=== PATIENT | male | born 1960 | race Caucasian/White ===

== ENCOUNTER → 2019-12-05 | Outpatient (CLI) | payer OTHER | END | disposition home or self-care (01) | LOC: LAB 09:20 | DX: R53.83 Other fatigue (principal); R79.89 Other specified abnormal findings of blood chemistry ==

== ENCOUNTER → 2023-06-21 | Outpatient (CLI) | payer OTHER ==
[~2023-06-21] MED LIST: BUDESONIDE-FO10.2 G1 INH; CARVEDILOL12.5 MG PO; CEFDINIR300 MG PO; FUROSEMIDE20 M1 PO; GEMFIBROZIL600 MG PO; LOSARTAN POTASS25 M1 PO; LOSARTAN POTASS50 M1 PO; METFORMIN HYD1000 MG PO; OMEPRAZOLE40 MG PO; POTASSIUM CHLO10 MEQ PO; PROAIR DIGIHAL90 MCG INH; PROVENTIL HFA6.7 GM INH; SPIRIVA RESPIMAT4 GM INH; VIBRAMYCIN100 MG PO
== END | disposition home or self-care (01) ==
LOC: WOUNDCARE 10:08
PROVIDERS: ATTEND Nurse Practitioner Family
DX: L03.116 Cellulitis of left lower limb (principal); L03.115 Cellulitis of right lower limb; E11.621 Type 2 diabetes mellitus with foot ulcer; L97.521 Non-pressure chronic ulcer of other part of left foot limited to breakdown of skin; E11.622 Type 2 diabetes mellitus with other skin ulcer; L97.321 Non-pressure chronic ulcer of left ankle limited to breakdown of skin; I11.0 Hypertensive heart disease with heart failure; I50.20 Unspecified systolic (congestive) heart failure; E78.5 Hyperlipidemia, unspecified; E78.00 Pure hypercholesterolemia, unspecified; F17.290 Nicotine dependence, other tobacco product, uncomplicated; Z95.5 Presence of coronary angioplasty implant and graft; Z89.411 Acquired absence of right great toe

== ENCOUNTER → 2023-07-01 | Outpatient (CLI) | payer OTHER ==
[~2023-07-01] MED LIST changes: +ASPIRIN CHILDRE81 MG PO; +ATORVASTATIN CA40 M1 PO; +GABAPENTIN100 M2 PO; +HYDRALAZINE HYD50 MG PO; +LASIX20 MG PO; +METFORMIN HYDR500 MG PO
== END | disposition home or self-care (01) ==
LOC: WOUNDCARE 01:28
PROVIDERS: ATTEND Nurse Practitioner Family
DX: E11.622 Type 2 diabetes mellitus with other skin ulcer (principal); L97.322 Non-pressure chronic ulcer of left ankle with fat layer exposed; E11.621 Type 2 diabetes mellitus with foot ulcer; L97.522 Non-pressure chronic ulcer of other part of left foot with fat layer exposed; L03.115 Cellulitis of right lower limb; L03.116 Cellulitis of left lower limb; I11.0 Hypertensive heart disease with heart failure; I50.20 Unspecified systolic (congestive) heart failure; E78.5 Hyperlipidemia, unspecified; E78.00 Pure hypercholesterolemia, unspecified; I25.2 Old myocardial infarction; Z87.891 Personal history of nicotine dependence; Z89.411 Acquired absence of right great toe

== ENCOUNTER → 2023-07-07 | Outpatient (CLI) | payer OTHER | END | disposition home or self-care (01) | LOC: WOUNDCARE 00:58 | PROVIDERS: ATTEND Nurse Practitioner Family | DX: E11.621 Type 2 diabetes mellitus with foot ulcer (principal); L97.522 Non-pressure chronic ulcer of other part of left foot with fat layer exposed; E11.622 Type 2 diabetes mellitus with other skin ulcer; L97.322 Non-pressure chronic ulcer of left ankle with fat layer exposed; L03.116 Cellulitis of left lower limb; L03.115 Cellulitis of right lower limb; E78.5 Hyperlipidemia, unspecified; I11.0 Hypertensive heart disease with heart failure; I50.20 Unspecified systolic (congestive) heart failure; E78.00 Pure hypercholesterolemia, unspecified; I25.2 Old myocardial infarction; Z89.411 Acquired absence of right great toe; Z87.891 Personal history of nicotine dependence ==

== ENCOUNTER → 2023-07-12 | Outpatient (CLI) | payer OTHER | END | disposition home or self-care (01) | LOC: WOUNDCARE 00:43 | PROVIDERS: ATTEND Nurse Practitioner Family | DX: L03.116 Cellulitis of left lower limb (principal); L03.115 Cellulitis of right lower limb; E11.621 Type 2 diabetes mellitus with foot ulcer; L97.521 Non-pressure chronic ulcer of other part of left foot limited to breakdown of skin; E11.622 Type 2 diabetes mellitus with other skin ulcer; L97.321 Non-pressure chronic ulcer of left ankle limited to breakdown of skin; I11.0 Hypertensive heart disease with heart failure; I50.20 Unspecified systolic (congestive) heart failure; I25.2 Old myocardial infarction; E78.5 Hyperlipidemia, unspecified; E78.00 Pure hypercholesterolemia, unspecified; F17.200 Nicotine dependence, unspecified, uncomplicated; Z89.411 Acquired absence of right great toe ==

== ENCOUNTER → 2023-07-14 | Outpatient (CLI) | payer OTHER | END | disposition home or self-care (01) | LOC: WOUNDCARE 00:33 | PROVIDERS: ATTEND Nurse Practitioner Family | DX: E11.621 Type 2 diabetes mellitus with foot ulcer (principal); L97.522 Non-pressure chronic ulcer of other part of left foot with fat layer exposed; E11.622 Type 2 diabetes mellitus with other skin ulcer; L97.321 Non-pressure chronic ulcer of left ankle limited to breakdown of skin; L03.116 Cellulitis of left lower limb; L03.115 Cellulitis of right lower limb; L84 Corns and callosities; I10 Essential (primary) hypertension; E78.00 Pure hypercholesterolemia, unspecified; I25.2 Old myocardial infarction; I11.0 Hypertensive heart disease with heart failure; I50.20 Unspecified systolic (congestive) heart failure; E78.5 Hyperlipidemia, unspecified; F17.290 Nicotine dependence, other tobacco product, uncomplicated; Z89.411 Acquired absence of right great toe ==

== ENCOUNTER 2023-07-21 10:47 | Inpatient (IN) | payer OTHER ==
[~2023-07-21] VITALS: Ht 178 cm; Wt 137.6 kg
[2023-07-21] VITALS (8 sets, daily range): BP systolic 191–230; BP diastolic 84–110
[~2023-07-21 10:47] MED LIST changes: -IMDUR SA30 MG PO; -K-TAB20 MEQ PO; -LASIX40 MG PO; -LISINOPRIL10 M1 PO
[2023-07-21 11:42] LABS: BASO # 0.1 10*3/uL (0.0-0.1); BASO % 1.3 % (0.0-1.0); EOS # 0.2 10*3/uL (0.0-0.4); EOS % 2.4 % (1.0-4.0); HEMATOCRIT 34.6 % (42.0-52.0); LYMPH # 1.5 10*3/uL (1.3-4.4); LYMPH % 16.2 % (27.0-41.0); MEAN CELL VOLUME 87.6 fl (80.0-94.0); MEAN CORPUSCULAR HGB 26.6 pg (27.0-31.0); MEAN CORPUSCULAR HGB CONC 30.3 g/dl (33.0-37.0); MEAN PLATELET VOLUME 10.5 fl (9.6-12.3); MONO # 0.6 10*3/uL (0.1-1.0); MONO % 6.4 % (3.0-9.0); NEUT % 73.4 % (47.0-73.0); PLATELET COUNT AUTOMATED 346 10*3/uL (130-400); RED BLOOD COUNT 3.95 10*6/uL (4.50-5.90); RED CELL DISTRI WIDTH 15.7 % (0-14.5); WHITE BLOOD COUNT 9.5 10*3/uL (4.8-10.8)
[2023-07-21] MEDS ORDERED: METFORMIN HYD1000 MG PO (12:12)
[2023-07-21 12:56] LABS: ACT PARTIAL THROMBO TIME 27.2 SECONDS (20.0-32.1); INTERNATIONAL NORM RATIO 1.2 (2.0-3.5)
[2023-07-21 12:58] LABS: ALKALINE PHOSPHATASE 128 U/L (46-116); BUN 35 mg/dl (9-23); CHLORIDE 113 mmol/L (98-107); LIPASE 43 U/L (12-53); POTASSIUM 4.3 mmol/L (3.4-5.1); TOTAL PROTEIN 6.5 gm/dL (6.0-8.0)
[2023-07-21 13:02] LABS: SGPT/ALT < 7 U/L (10-49)
[2023-07-22] VITALS: BP 203/77
[2023-07-22 02:00] VITALS: BP 186/64
[2023-07-22 06:25] LABS: BASO # 0.1 10*3/uL (0.0-0.1); BASO % 1.3 % (0.0-1.0); EOS # 0.2 10*3/uL (0.0-0.4); HEMATOCRIT 30.8 % (42.0-52.0); LYMPH # 1.9 10*3/uL (1.3-4.4); LYMPH % 18.2 % (27.0-41.0); MEAN CELL VOLUME 88.3 fl (80.0-94.0); MEAN CORPUSCULAR HGB 26.4 pg (27.0-31.0); MEAN CORPUSCULAR HGB CONC 29.9 g/dl (33.0-37.0); MEAN PLATELET VOLUME 10.4 fl (9.6-12.3); MONO # 0.8 10*3/uL (0.1-1.0); MONO % 7.5 % (3.0-9.0); NEUT # 7.2 10*3/uL (2.3-7.9); NEUT % 70.6 % (47.0-73.0); PLATELET COUNT AUTOMATED 319 10*3/uL (130-400); RED BLOOD COUNT 3.49 10*6/uL (4.50-5.90); RED CELL DISTRI WIDTH 15.7 % (0-14.5); WHITE BLOOD COUNT 10.2 10*3/uL (4.8-10.8)
[2023-07-22 06:48] LABS: ALKALINE PHOSPHATASE 114 U/L (46-116); BUN 34 mg/dl (9-23); CHLORIDE 111 mmol/L (98-107); POTASSIUM 3.9 mmol/L (3.4-5.1); TOTAL PROTEIN 5.7 gm/dL (6.0-8.0)
[2023-07-22 06:55] LABS: SGPT/ALT < 7 U/L (10-49)
[2023-07-22 08:00] VITALS: BP 204/75
[2023-07-22 12:00] VITALS: BP 193/71
[2023-07-22 16:00] VITALS: BP 179/85
[2023-07-22 20:00] VITALS: BP 171/56
[2023-07-23] VITALS (7 sets, daily range): BP systolic 146–187; BP diastolic 51–69
[2023-07-23 07:43] LABS: BASO # 0.1 10*3/uL (0.0-0.1); BASO % 1.4 % (0.0-1.0); EOS # 0.3 10*3/uL (0.0-0.4); EOS % 4.3 % (1.0-4.0); HEMATOCRIT 29.7 % (42.0-52.0); LYMPH # 1.6 10*3/uL (1.3-4.4); LYMPH % 22.8 % (27.0-41.0); MEAN CELL VOLUME 88.7 fl (80.0-94.0); MEAN CORPUSCULAR HGB 26.3 pg (27.0-31.0); MEAN CORPUSCULAR HGB CONC 29.6 g/dl (33.0-37.0); MEAN PLATELET VOLUME 10.6 fl (9.6-12.3); MONO # 0.6 10*3/uL (0.1-1.0); NEUT # 4.4 10*3/uL (2.3-7.9); NEUT % 63.2 % (47.0-73.0); PLATELET COUNT AUTOMATED 273 10*3/uL (130-400); RED BLOOD COUNT 3.35 10*6/uL (4.50-5.90); RED CELL DISTRI WIDTH 15.6 % (0-14.5)
[2023-07-23 07:52] LABS: POTASSIUM 3.9 mmol/L (3.4-5.1)
[2023-07-23 11:53] LABS: ABG BASE EXCESS -2.3 mmol/L (-2.0-2.0); ARTERIAL BLOOD GAS PH 7.424 (7.35-7.45); ARTERIAL BLOOD GAS PO2 127.6 (80-90)
[2023-07-24] VITALS: BP 148/54
[2023-07-24 07:50] LABS: BASO # 0.1 10*3/uL (0.0-0.1); BASO % 1.4 % (0.0-1.0); EOS # 0.4 10*3/uL (0.0-0.4); EOS % 4.8 % (1.0-4.0); HEMATOCRIT 30.4 % (42.0-52.0); LYMPH # 1.5 10*3/uL (1.3-4.4); LYMPH % 18.9 % (27.0-41.0); MEAN CELL VOLUME 89.7 fl (80.0-94.0); MEAN CORPUSCULAR HGB 26.5 pg (27.0-31.0); MEAN CORPUSCULAR HGB CONC 29.6 g/dl (33.0-37.0); MEAN PLATELET VOLUME 10.6 fl (9.6-12.3); MONO # 0.7 10*3/uL (0.1-1.0); NEUT # 5.1 10*3/uL (2.3-7.9); NEUT % 65.4 % (47.0-73.0); PLATELET COUNT AUTOMATED 279 10*3/uL (130-400); RED BLOOD COUNT 3.39 10*6/uL (4.50-5.90); RED CELL DISTRI WIDTH 15.7 % (0-14.5); WHITE BLOOD COUNT 7.7 10*3/uL (4.8-10.8)
[2023-07-24 08:00] VITALS: BP 175/65
[2023-07-24 08:06] LABS: POTASSIUM 4.6 mmol/L (3.4-5.1)
[2023-07-24 12:00] VITALS: BP 131/82
[2023-07-24 16:00] VITALS: BP 181/68
[2023-07-24 20:00] VITALS: BP 194/66
[2023-07-24 20:30] VITALS: BP 178/62
[2023-07-25] VITALS: BP 162/63
[2023-07-25 06:22] LABS: BASO # 0.1 10*3/uL (0.0-0.1); BASO % 1.7 % (0.0-1.0); EOS # 0.4 10*3/uL (0.0-0.4); EOS % 5.5 % (1.0-4.0); HEMATOCRIT 29.5 % (42.0-52.0); LYMPH # 1.4 10*3/uL (1.3-4.4); LYMPH % 20.2 % (27.0-41.0); MEAN CELL VOLUME 90.5 fl (80.0-94.0); MEAN CORPUSCULAR HGB 26.4 pg (27.0-31.0); MEAN CORPUSCULAR HGB CONC 29.2 g/dl (33.0-37.0); MEAN PLATELET VOLUME 10.4 fl (9.6-12.3); MONO # 0.7 10*3/uL (0.1-1.0); MONO % 9.8 % (3.0-9.0); NEUT # 4.5 10*3/uL (2.3-7.9); NEUT % 62.5 % (47.0-73.0); PLATELET COUNT AUTOMATED 270 10*3/uL (130-400); RED BLOOD COUNT 3.26 10*6/uL (4.50-5.90); RED CELL DISTRI WIDTH 15.6 % (0-14.5); WHITE BLOOD COUNT 7.1 10*3/uL (4.8-10.8)
[2023-07-25 06:35] VITALS: BP 174/76
[2023-07-25 07:13] LABS: POTASSIUM 4.8 mmol/L (3.4-5.1)
[2023-07-25 08:00] VITALS: BP 146/51
[2023-07-25 12:00] VITALS: BP 198/68
[2023-07-25 16:00] VITALS: BP 152/58
[2023-07-25 20:00] VITALS: BP 178/80
[2023-07-26] VITALS: BP 145/56
[2023-07-26 06:08] LABS: BASO # 0.1 10*3/uL (0.0-0.1); BASO % 1.5 % (0.0-1.0); EOS # 0.4 10*3/uL (0.0-0.4); EOS % 5.3 % (1.0-4.0); HEMATOCRIT 31.7 % (42.0-52.0); LYMPH # 1.4 10*3/uL (1.3-4.4); LYMPH % 19.3 % (27.0-41.0); MEAN CELL VOLUME 89.5 fl (80.0-94.0); MEAN CORPUSCULAR HGB 26.3 pg (27.0-31.0); MEAN CORPUSCULAR HGB CONC 29.3 g/dl (33.0-37.0); MEAN PLATELET VOLUME 10.2 fl (9.6-12.3); MONO # 0.6 10*3/uL (0.1-1.0); MONO % 8.3 % (3.0-9.0); NEUT # 4.9 10*3/uL (2.3-7.9); NEUT % 65.3 % (47.0-73.0); PLATELET COUNT AUTOMATED 271 10*3/uL (130-400); RED BLOOD COUNT 3.54 10*6/uL (4.50-5.90); RED CELL DISTRI WIDTH 15.7 % (0-14.5); WHITE BLOOD COUNT 7.5 10*3/uL (4.8-10.8)
[2023-07-26 06:25] LABS: POTASSIUM 4.8 mmol/L (3.4-5.1)
[2023-07-26 09:00] VITALS: BP 180/70
[2023-07-26 12:00] VITALS: BP 191/102
[2023-07-26 16:00] VITALS: BP 179/72
[2023-07-26 20:00] VITALS: BP 165/69
[2023-07-27] VITALS: BP 128/45
[2023-07-27 04:00] VITALS: BP 133/53
[2023-07-27 08:00] VITALS: BP 160/80
[2023-07-27] MEDS ORDERED: IMDUR SA30 MG PO (09:45)
[2023-07-27] MEDS ORDERED: LASIX40 MG PO (09:45)
[2023-07-27] MEDS ORDERED: LISINOPRIL10 M1 PO (09:45)
[2023-07-27] MEDS ORDERED: K-TAB20 MEQ PO (09:46)
[2023-07-27] MEDS ORDERED: VIBRAMYCIN100 MG PO (09:47)
== END 2023-07-27 11:19 | disposition home or self-care (01) | DRG 199 ==
LOC: ED 10:47 → EDHOLD 13:48 → 4E 13:48 → EDHOLD 20:10 → 4E 20:23
PROVIDERS: Emergency Medicine; Internal Medicine; Student in an Organized Health Care Education/Training Program; ADMIT Internal Medicine; ATTEND Internal Medicine
PROC: 4A02XM4 Measurement of Cardiac Total Activity, External Approach (ICD-10-PCS; principal; 2023-07-26)
PROC: 3E073KZ Introduction of Other Diagnostic Substance into Coronary Artery, Percutaneous Approach (ICD-10-PCS; 2023-07-26)
DX: I16.1 Hypertensive emergency (principal); N17.0 Acute kidney failure with tubular necrosis; E43 Unspecified severe protein-calorie malnutrition; I50.43 Acute on chronic combined systolic (congestive) and diastolic (congestive) heart failure; I21.4 Non-ST elevation (NSTEMI) myocardial infarction; I11.0 Hypertensive heart disease with heart failure; J44.9 Chronic obstructive pulmonary disease, unspecified; E78.5 Hyperlipidemia, unspecified; Z66 Do not resuscitate; I25.10 Atherosclerotic heart disease of native coronary artery without angina pectoris; E11.51 Type 2 diabetes mellitus with diabetic peripheral angiopathy without gangrene; I27.20 Pulmonary hypertension, unspecified; D64.9 Anemia, unspecified; L03.115 Cellulitis of right lower limb; L03.116 Cellulitis of left lower limb; F17.210 Nicotine dependence, cigarettes, uncomplicated; E87.8 Other disorders of electrolyte and fluid balance, not elsewhere classified; I25.110 Atherosclerotic heart disease of native coronary artery with unstable angina pectoris; J45.21 Mild intermittent asthma with (acute) exacerbation; E11.621 Type 2 diabetes mellitus with foot ulcer; I07.1 Rheumatic tricuspid insufficiency; E11.42 Type 2 diabetes mellitus with diabetic polyneuropathy; Z83.6 Family history of other diseases of the respiratory system; I25.2 Old myocardial infarction; Z71.6 Tobacco abuse counseling; Z68.41 Body mass index [BMI] 40.0-44.9, adult; Z51.5 Encounter for palliative care

== ENCOUNTER → 2023-07-21 | Outpatient (CLI) | payer OTHER ==
[~2023-07-21] MED LIST changes: +IMDUR SA30 MG PO; +K-TAB20 MEQ PO; +LASIX40 MG PO; +LISINOPRIL10 M1 PO
== END | disposition home or self-care (01) ==
LOC: RESCLI 01:54
PROVIDERS: ATTEND Internal Medicine
DX: I11.0 Hypertensive heart disease with heart failure (principal); I50.9 Heart failure, unspecified; E11.622 Type 2 diabetes mellitus with other skin ulcer; K21.9 Gastro-esophageal reflux disease without esophagitis; G62.9 Polyneuropathy, unspecified; J44.9 Chronic obstructive pulmonary disease, unspecified; Z00.00 Encounter for general adult medical examination without abnormal findings; Z98.890 Other specified postprocedural states; Z79.899 Other long term (current) drug therapy

== ENCOUNTER → 2023-08-02 | Outpatient (CLI) | payer OTHER ==
[~2023-08-02] MED LIST changes: +IMDUR SA30 MG PO; +K-TAB20 MEQ PO; +LASIX40 MG PO; +LISINOPRIL10 M1 PO
== END | disposition home or self-care (01) ==
LOC: WOUNDCARE 01:00
PROVIDERS: ATTEND Nurse Practitioner Family
DX: E11.621 Type 2 diabetes mellitus with foot ulcer (principal); L97.521 Non-pressure chronic ulcer of other part of left foot limited to breakdown of skin; L03.116 Cellulitis of left lower limb; L03.115 Cellulitis of right lower limb; L84 Corns and callosities; I11.0 Hypertensive heart disease with heart failure; I50.20 Unspecified systolic (congestive) heart failure; I25.2 Old myocardial infarction; E78.00 Pure hypercholesterolemia, unspecified; E78.5 Hyperlipidemia, unspecified; F17.290 Nicotine dependence, other tobacco product, uncomplicated; Z89.411 Acquired absence of right great toe

== ENCOUNTER → 2023-08-05 | Outpatient (CLI) | payer OTHER | END | disposition home or self-care (01) | LOC: WOUNDCARE 02:23 | PROVIDERS: ATTEND Nurse Practitioner Family | DX: E11.621 Type 2 diabetes mellitus with foot ulcer (principal); L97.522 Non-pressure chronic ulcer of other part of left foot with fat layer exposed; L03.116 Cellulitis of left lower limb; L84 Corns and callosities; I11.0 Hypertensive heart disease with heart failure; I50.20 Unspecified systolic (congestive) heart failure; E78.5 Hyperlipidemia, unspecified; E78.00 Pure hypercholesterolemia, unspecified; Z89.411 Acquired absence of right great toe; Z95.5 Presence of coronary angioplasty implant and graft; Z87.891 Personal history of nicotine dependence ==

== ENCOUNTER 2023-12-09 02:09 | Inpatient (IN) | payer SELFPAY ==
[~2023-12-09] VITALS: Ht 177.8 cm; Wt 118.9 kg
[2023-12-09] VITALS (27 sets, daily range): BP systolic 144–224; BP diastolic 51–99
[~2023-12-09 02:09] MED LIST changes: +OMNICEF300 MG PO
[2023-12-09] MEDS ORDERED: CARVEDILOL25 MG PO (02:33)
[2023-12-09] MEDS ORDERED: VITAMIN D250 MC1 PO (02:34)
[2023-12-09 02:41] LABS: BASO # 0.1 10*3/uL (0.0-0.1); EOS # 0.4 10*3/uL (0.0-0.4); EOS % 5.7 % (1.0-4.0); LYMPH # 1.1 10*3/uL (1.3-4.4); LYMPH % 16.1 % (27.0-41.0); MEAN CELL VOLUME 90.4 fl (80.0-94.0); MEAN CORPUSCULAR HGB 26.6 pg (27.0-31.0); MEAN CORPUSCULAR HGB CONC 29.4 g/dl (33.0-37.0); MEAN PLATELET VOLUME 9.6 fl (9.6-12.3); MONO # 0.4 10*3/uL (0.1-1.0); MONO % 5.7 % (3.0-9.0); NEUT # 4.6 10*3/uL (2.3-7.9); NEUT % 70.3 % (47.0-73.0); PLATELET COUNT AUTOMATED 286 10*3/uL (130-400); RED BLOOD COUNT 3.76 10*6/uL (4.50-5.90); RED CELL DISTRI WIDTH 15.7 % (0-14.5); WHITE BLOOD COUNT 6.5 10*3/uL (4.8-10.8)
[2023-12-09 02:57] LABS: ACT PARTIAL THROMBO TIME 27.9 SECONDS (20.0-32.1)
[2023-12-09 02:58] LABS: ALKALINE PHOSPHATASE 133 U/L (46-116); BUN 33 mg/dl (9-23); CHLORIDE 111 mmol/L (98-107); LIPASE 26 U/L (12-53); POTASSIUM 3.7 mmol/L (3.4-5.1); TOTAL PROTEIN 6.1 gm/dL (6.0-8.0)
[2023-12-09 02:59] LABS: SGPT/ALT < 7 U/L (5-49)
[2023-12-09 09:54] LABS: BILIRUBIN Negative (Negative); BLOOD Negative (Negative); CLARITY Clear (Clear); COLOR Yellow (Yellow); GLUCOSE Trace (Negative); KETONE Negative (Negative); LEUKO ESTERASE Negative (Negative); NITRITE Negative (Negative); SPECIFIC GRAVITY 1.015 (1.001-1.030); UROBILINOGEN 0.2 E.U./dl (0.0-1.0)
[2023-12-09 10:17] LABS: BACTERIA 2+
[2023-12-10] VITALS: BP 188/62
[2023-12-10 02:24] VITALS: BP 162/64
[2023-12-10 05:22] LABS: URIC ACID 9.7 mg/dL (3.7-9.2)
[2023-12-10 06:09] LABS: BASO % 0.5 % (0.0-1.0); HEMATOCRIT 31.4 % (42.0-52.0); LYMPH # 0.5 10*3/uL (1.3-4.4); LYMPH % 8.9 % (27.0-41.0); MEAN CELL VOLUME 88.5 fl (80.0-94.0); MEAN CORPUSCULAR HGB 26.2 pg (27.0-31.0); MEAN CORPUSCULAR HGB CONC 29.6 g/dl (33.0-37.0); MEAN PLATELET VOLUME 10.6 fl (9.6-12.3); MONO # 0.1 10*3/uL (0.1-1.0); MONO % 0.9 % (3.0-9.0); NEUT # 4.9 10*3/uL (2.3-7.9); NEUT % 89.5 % (47.0-73.0); PLATELET COUNT AUTOMATED 286 10*3/uL (130-400); RED BLOOD COUNT 3.55 10*6/uL (4.50-5.90); RED CELL DISTRI WIDTH 15.4 % (0-14.5); WHITE BLOOD COUNT 5.5 10*3/uL (4.8-10.8)
[2023-12-10 06:57] LABS: VITAMIN D, 25-HYDROXY 63.1 ng/mL (30-100)
[2023-12-10 08:00] VITALS: BP 151/91
[2023-12-10 11:55] LABS: POTASSIUM 4.1 mmol/L (3.4-5.1)
[2023-12-10 12:00] VITALS: BP 160/80
[2023-12-10 16:00] VITALS: BP 168/70
[2023-12-10 20:00] VITALS: BP 220/98
[2023-12-11] VITALS: BP 188/62
[2023-12-11 08:00] VITALS: BP 194/86
[2023-12-11 08:07] LABS: HBSAG Negative (Negative); HEP B CORE AB, IGM Negative (Negative); HEPATITIS C ANTIBODY Non Reactive (Non Reactive)
[2023-12-11 09:19] VITALS: BP 152/70
[2023-12-11 11:19] VITALS: BP 170/80
[2023-12-11] MEDS ORDERED: PREDNISONE10 MG PO (12:01)
[2023-12-11] MEDS ORDERED: HYDRALAZINE HC100 MG PO (12:01)
[2023-12-12 15:06] LABS: FREE KAPPA LIGHT CHAINS 125.5 mg/L (3.3-19.4); KAPPA/LAMBDA RATIO 1.87 (0.26-1.65)
[2023-12-13 12:08] LABS: ALPHA-1-GLOBULIN, URINE 2.6 % (.); ALPHA-2-GLOBULIN, URINE 11.1 % (.); GAMMA GLOBULIN, URINE 16.1 % (.); M-SPIKE % Not Observed % (Not Observed); PROTEIN,TOTAL - URINE RANDOM 778.7 mg/dL (Not Estab.)
[2023-12-13 13:07] LABS: A/G RATIO 0.9 (0.7-1.7); ALBUMIN 2.6 g/dL (2.9-4.4); ALPHA-1-GLOBULIN 0.2 g/dL (0.0-0.4); ALPHA-2-GLOBULIN 0.8 g/dL (0.4-1.0); BETA GLOBULIN 0.9 g/dL (0.7-1.3); GAMMA GLOBULIN 0.8 g/dL (0.4-1.8); GLOBULIN, TOTAL 2.8 g/dL (2.2-3.9); M-SPIKE Not Observed g/dL (Not Observed); TOTAL PROTEIN, SERUM 5.4 g/dL (6.0-8.5)
== END 2023-12-11 12:52 | disposition home or self-care (01) | DRG 304 ==
LOC: ED 02:09 → EDHOLD 05:18 → 4E 16:03
PROVIDERS: Internal Medicine; Internal Medicine Nephrology; Nurse Practitioner Family; Student in an Organized Health Care Education/Training Program; ADMIT Internal Medicine; ATTEND Internal Medicine
DX: I16.1 Hypertensive emergency (principal); E43 Unspecified severe protein-calorie malnutrition; N17.0 Acute kidney failure with tubular necrosis; I50.32 Chronic diastolic (congestive) heart failure; N18.4 Chronic kidney disease, stage 4 (severe); J91.8 Pleural effusion in other conditions classified elsewhere; I13.0 Hypertensive heart and chronic kidney disease with heart failure and stage 1 through stage 4 chronic kidney disease, or unspecified chronic kidney disease; I25.10 Atherosclerotic heart disease of native coronary artery without angina pectoris; J44.9 Chronic obstructive pulmonary disease, unspecified; E11.22 Type 2 diabetes mellitus with diabetic chronic kidney disease; E11.40 Type 2 diabetes mellitus with diabetic neuropathy, unspecified; I27.20 Pulmonary hypertension, unspecified; E11.51 Type 2 diabetes mellitus with diabetic peripheral angiopathy without gangrene; E66.01 Morbid (severe) obesity due to excess calories; D64.9 Anemia, unspecified; E87.8 Other disorders of electrolyte and fluid balance, not elsewhere classified; E11.65 Type 2 diabetes mellitus with hyperglycemia; Z83.6 Family history of other diseases of the respiratory system; I25.2 Old myocardial infarction; Z95.5 Presence of coronary angioplasty implant and graft; Z68.38 Body mass index [BMI] 38.0-38.9, adult

== ENCOUNTER → 2023-12-14 | Outpatient (CLI) | payer OTHER ==
[~2023-12-14] MED LIST changes: +CARVEDILOL25 MG PO; +HYDRALAZINE HC100 MG PO; +PREDNISONE10 MG PO; +VITAMIN D250 MC1 PO
== END | disposition home or self-care (01) ==
LOC: RESCLI 15:25
PROVIDERS: ATTEND Internal Medicine
DX: I13.0 Hypertensive heart and chronic kidney disease with heart failure and stage 1 through stage 4 chronic kidney disease, or unspecified chronic kidney disease (principal); E11.22 Type 2 diabetes mellitus with diabetic chronic kidney disease; N18.32 Chronic kidney disease, stage 3b; I50.22 Chronic systolic (congestive) heart failure; E11.59 Type 2 diabetes mellitus with other circulatory complications; E55.9 Vitamin D deficiency, unspecified; E78.5 Hyperlipidemia, unspecified; K21.9 Gastro-esophageal reflux disease without esophagitis; J44.9 Chronic obstructive pulmonary disease, unspecified; G62.9 Polyneuropathy, unspecified; F17.210 Nicotine dependence, cigarettes, uncomplicated; Z82.49 Family history of ischemic heart disease and other diseases of the circulatory system; Z98.890 Other specified postprocedural states; Z95.5 Presence of coronary angioplasty implant and graft; Z79.82 Long term (current) use of aspirin; Z79.899 Other long term (current) drug therapy

== ENCOUNTER 2024-01-05 13:00 | Inpatient (IN) | payer SELFPAY ==
[~2024-01-05] VITALS: Ht 177.8 cm; Wt 114.0 kg
[2024-01-05] VITALS (25 sets, daily range): BP systolic 136–246; BP diastolic 43–92
[~2024-01-05 13:00] MED LIST changes: -VITAMIN D250 MC1 PO; +Vitamin D PO
[2024-01-05 14:21] LABS: BASO % 0.1 % (0.0-1.0); EOS # 0.1 10*3/uL (0.0-0.4); EOS % 1.5 % (1.0-4.0); LYMPH # 1.1 10*3/uL (1.3-4.4); LYMPH % 16.3 % (27.0-41.0); MEAN CORPUSCULAR HGB CONC 29.3 g/dl (33.0-37.0); MEAN PLATELET VOLUME 9.3 fl (9.6-12.3); MONO # 0.6 10*3/uL (0.1-1.0); MONO % 8.1 % (3.0-9.0); NEUT % 73.6 % (47.0-73.0); PLATELET COUNT AUTOMATED 220 10*3/uL (130-400); RED BLOOD COUNT 3.26 10*6/uL (4.50-5.90); RED CELL DISTRI WIDTH 17.2 % (0-14.5); WHITE BLOOD COUNT 6.8 10*3/uL (4.8-10.8)
[2024-01-05 14:33] LABS: ACT PARTIAL THROMBO TIME 26.9 SECONDS (20.0-32.1)
[2024-01-05] MEDS ORDERED: BUMETANIDE 1 MG/4 ML VIAL IV ONE (14:40)
[2024-01-05] MEDS ORDERED: hydrALAZINE hydrochloride 20 MG/ML VIAL IV ONE (14:45)
[2024-01-05 14:54] LABS: POTASSIUM 3.7 mmol/L (3.4-5.1); TOTAL PROTEIN 5.5 gm/dL (6.0-8.0)
[2024-01-05] MEDS ORDERED: Magnesium Hydroxide 30 ML UDC PO PRN (17:40)
[2024-01-05] MEDS ORDERED: Ondansetron Hydrochloride 4 MG/2 ML VIAL IV PRN (17:40)
[2024-01-05] MEDS ORDERED: BISACODYL 10 MG SUPP R PRN (17:40)
[2024-01-05] MEDS ORDERED: ACETAMINOPHEN 325 MG TAB PO PRN (17:40)
[2024-01-05] MEDS ORDERED: Acetaminophen/Hydrocodone 5 MG/325 MG TABLET PO PRN (17:40)
[2024-01-05] MEDS ORDERED: TEMAZEPAM 15 MG CAP PO PRN (17:40)
[2024-01-05] MEDS ORDERED: ACETAMINOPHEN 650 MG SUPP R PRN (17:40)
[2024-01-05] MEDS ORDERED: BISACODYL 5 MG TAB PO PRN (17:40)
[2024-01-05] MEDS ORDERED: niCARdipine hydrochloride 25 MG in SODIUM CHLORIDE 0.9% 240 ML IV SCH (18:00)
[2024-01-05] MEDS ORDERED: methylPREDNISolone sod succ 125 MG VIAL IV ONE (18:20)
[2024-01-05] MEDS ORDERED: Albuterol Sulf/Ipratropium 3 ML VIAL NEB PRN (18:20)
[2024-01-05] MEDS ORDERED: Ceftriaxone Sodium 20 ML IV ONE (18:25)
[2024-01-05] MEDS ORDERED: AZITHROMYCIN 250 ML IV SCH (19:00)
[2024-01-05] MEDS ORDERED: HEPARIN SODIUM 5,000 UNIT/ML VIAL SC SCH (22:00)
[2024-01-05] MEDS ORDERED: Nicotine 21 MG PATCH T SCH (22:10)
[2024-01-05] MEDS ORDERED: FUROSEMIDE 40 MG/4 ML VIAL ONE (23:56)
[2024-01-06] VITALS (58 sets, daily range): BP systolic 117–189; BP diastolic 40–104
[2024-01-06] MEDS ORDERED: FUROSEMIDE 80 MG IV SCH
[2024-01-06] MEDS ORDERED: FUROSEMIDE 100 MG/10 ML VIAL IV SCH
[2024-01-06 06:00] LABS: HEMATOCRIT 32.5 % (42.0-52.0); MEAN CORPUSCULAR HGB 26.6 pg (27.0-31.0); MEAN CORPUSCULAR HGB CONC 29.5 g/dl (33.0-37.0); MEAN PLATELET VOLUME 10.4 fl (9.6-12.3); PLATELET COUNT AUTOMATED 268 10*3/uL (130-400); RED BLOOD COUNT 3.61 10*6/uL (4.50-5.90); RED CELL DISTRI WIDTH 17.1 % (0-14.5)
[2024-01-06] MEDS ORDERED: FUROSEMIDE 40 MG/4 ML VIAL IV SCH (06:00)
[2024-01-06 06:16] LABS: MANUAL DIFF REFLEX YES
[2024-01-06 06:58] LABS: POTASSIUM 4.3 mmol/L (3.4-5.1)
[2024-01-06 07:30] LABS: ACANTHOCYTES MODERATE; PLATELET SUFFICIENCY NORMAL (NORMAL); TOTAL CELLS COUNTED 100 #CELLS
[2024-01-06] MEDS ORDERED: MAGNESIUM SULFATE 50 ML IV ONE (08:55)
[2024-01-06] MEDS ORDERED: BUDESONIDE 0.5 MG AMP NEB SCH (09:12)
[2024-01-06] MEDS ORDERED: methylPREDNISolone sod succ 40 MG VIAL IV SCH (10:00)
[2024-01-06] MEDS ORDERED: 'CLONIDINE0.1 MG PO (10:58)
[2024-01-06] MEDS ORDERED: AMLODIPINE BESY10 MG PO (11:01)
[2024-01-06] MEDS ORDERED: BUMETANIDE2 MG PO (11:02)
[2024-01-06] MEDS ORDERED: ATORVASTATIN CA80 M1 PO (11:03)
[2024-01-06] MEDS ORDERED: CLOPIDOGREL75 MG PO (11:05)
[2024-01-06] MEDS ORDERED: Imdur SA60 MG PO (11:36)
[2024-01-06] MEDS ORDERED: FUROSEMIDE40 MG PO (11:37)
[2024-01-06 12:52] LABS: BILIRUBIN Negative (Negative); BLOOD Negative (Negative); CLARITY Clear (Clear); COLOR Yellow (Yellow); GLUCOSE 1+ (Negative); KETONE Negative (Negative); LEUKO ESTERASE Negative (Negative); NITRITE Negative (Negative); SPECIFIC GRAVITY 1.015 (1.001-1.030); UROBILINOGEN 0.2 E.U./dl (0.0-1.0)
[2024-01-06 13:16] LABS: BACTERIA 1+; EPITHELIAL CELLS 0-2; RBC 0-2 rbc/hpf (0-2); WBC 0-2 wbc/hpf (0-5)
[2024-01-06] MEDS ORDERED: FUROSEMIDE IV SCH (14:00)
[2024-01-06] MEDS ORDERED: hydrALAZINE hydrochloride 50 MG TAB PO SCH (14:00)
[2024-01-06] MEDS ORDERED: INFUSION IV SCH (14:00)
[2024-01-06] MEDS ORDERED: Ceftriaxone Sodium 2 GM in SYRINGE INFUSION 20 ML IV SCH (18:00)
[2024-01-06] MEDS ORDERED: cloNIDine Hydrochloride 0.1 MG TAB PO SCH (22:00)
[2024-01-06] MEDS ORDERED: CARVEDILOL 25 MG TAB PO SCH (22:00)
[2024-01-07] VITALS: BP 130/46
[2024-01-07 04:00] VITALS: BP 171/72
[2024-01-07 06:04] LABS: BASO % 0.3 % (0.0-1.0); EOS # 0.1 10*3/uL (0.0-0.4); EOS % 1.1 % (1.0-4.0); HEMATOCRIT 27.1 % (42.0-52.0); LYMPH # 1.6 10*3/uL (1.3-4.4); LYMPH % 25.1 % (27.0-41.0); MEAN CELL VOLUME 91.2 fl (80.0-94.0); MEAN CORPUSCULAR HGB 27.3 pg (27.0-31.0); MEAN CORPUSCULAR HGB CONC 29.9 g/dl (33.0-37.0); MEAN PLATELET VOLUME 9.8 fl (9.6-12.3); MONO # 0.4 10*3/uL (0.1-1.0); MONO % 6.7 % (3.0-9.0); NEUT # 4.2 10*3/uL (2.3-7.9); NEUT % 66.5 % (47.0-73.0); PLATELET COUNT AUTOMATED 194 10*3/uL (130-400); RED BLOOD COUNT 2.97 10*6/uL (4.50-5.90); RED CELL DISTRI WIDTH 17.2 % (0-14.5); WHITE BLOOD COUNT 6.3 10*3/uL (4.8-10.8)
[2024-01-07 06:09] LABS: POTASSIUM 4.8 mmol/L (3.4-5.1)
[2024-01-07 08:00] VITALS: BP 184/81
[2024-01-07] MEDS ORDERED: ISOSORBIDE MONONITRATE 60 MG TAB PO SCH (10:00)
[2024-01-07] MEDS ORDERED: amLODIPine besylate 10 MG TAB PO SCH (10:00)
[2024-01-07] MEDS ORDERED: MAGNESIUM SULFATE 50 ML IV ONE (11:30)
[2024-01-07 12:00] VITALS: BP 143/52
[2024-01-07 16:00] VITALS: BP 147/89
[2024-01-07 20:00] VITALS: BP 155/56
[2024-01-08] VITALS: BP 167/61
[2024-01-08 04:00] VITALS: BP 177/76
[2024-01-08 06:02] LABS: BASO % 0.5 % (0.0-1.0); EOS # 0.3 10*3/uL (0.0-0.4); EOS % 5.8 % (1.0-4.0); HEMATOCRIT 28.5 % (42.0-52.0); LYMPH # 1.6 10*3/uL (1.3-4.4); LYMPH % 28.7 % (27.0-41.0); MEAN CELL VOLUME 93.1 fl (80.0-94.0); MEAN CORPUSCULAR HGB 26.8 pg (27.0-31.0); MEAN CORPUSCULAR HGB CONC 28.8 g/dl (33.0-37.0); MEAN PLATELET VOLUME 9.8 fl (9.6-12.3); MONO # 0.4 10*3/uL (0.1-1.0); MONO % 6.7 % (3.0-9.0); NEUT # 3.3 10*3/uL (2.3-7.9); NEUT % 57.9 % (47.0-73.0); PLATELET COUNT AUTOMATED 228 10*3/uL (130-400); RED BLOOD COUNT 3.06 10*6/uL (4.50-5.90); RED CELL DISTRI WIDTH 17.2 % (0-14.5); WHITE BLOOD COUNT 5.7 10*3/uL (4.8-10.8)
[2024-01-08 06:15] LABS: POTASSIUM 5.1 mmol/L (3.4-5.1)
[2024-01-08 08:00] VITALS: BP 101/46; BP 153/70
[2024-01-08 12:00] VITALS: BP 127/79
[2024-01-08 15:52] VITALS: BP 136/28
[2024-01-08 20:00] VITALS: BP 130/64
[2024-01-09] VITALS: BP 160/73
[2024-01-09 04:00] VITALS: BP 133/61
[2024-01-09 06:10] LABS: POTASSIUM 5.7 mmol/L (3.4-5.1)
[2024-01-09 06:15] LABS: BASO % 0.7 % (0.0-1.0); EOS # 0.4 10*3/uL (0.0-0.4); EOS % 6.4 % (1.0-4.0); HEMATOCRIT 26.7 % (42.0-52.0); LYMPH # 1.5 10*3/uL (1.3-4.4); LYMPH % 27.7 % (27.0-41.0); MEAN CELL VOLUME 93.7 fl (80.0-94.0); MEAN CORPUSCULAR HGB CONC 28.8 g/dl (33.0-37.0); MEAN PLATELET VOLUME 10.3 fl (9.6-12.3); MONO # 0.5 10*3/uL (0.1-1.0); MONO % 8.6 % (3.0-9.0); NEUT # 3.1 10*3/uL (2.3-7.9); NEUT % 56.4 % (47.0-73.0); PLATELET COUNT AUTOMATED 203 10*3/uL (130-400); RED BLOOD COUNT 2.85 10*6/uL (4.50-5.90); RED CELL DISTRI WIDTH 17.1 % (0-14.5); WHITE BLOOD COUNT 5.5 10*3/uL (4.8-10.8)
[2024-01-09] MEDS ORDERED: SODIUM POLYSTYRENE SULFONATE 15 GM/60 ML BOT PO ONE ×2 (07:25→12:45)
[2024-01-09] MEDS ORDERED: CALCIUM GLUC IN NACL, ISO-OSM 100 ML IV ONE (07:40)
[2024-01-09 08:00] VITALS: BP 145/44
[2024-01-09] MEDS ORDERED: INFUSION IV SCH (10:00)
[2024-01-09] MEDS ORDERED: FUROSEMIDE IV SCH (10:00)
[2024-01-09 11:56] VITALS: BP 164/60
[2024-01-09] MEDS ORDERED: METOLAZONE 5 MG TAB PO SCH (12:45)
[2024-01-09 15:45] VITALS: BP 148/52
[2024-01-09] MEDS ORDERED: DOCUSATE SODIUM 100 MG CAP PO SCH (18:00)
[2024-01-09 20:00] VITALS: BP 133/40
[2024-01-10] VITALS: BP 106/49
[2024-01-10 04:00] VITALS: BP 170/61
[2024-01-10 06:10] LABS: BASO % 0.5 % (0.0-1.0); EOS # 0.3 10*3/uL (0.0-0.4); EOS % 5.1 % (1.0-4.0); LYMPH # 1.5 10*3/uL (1.3-4.4); LYMPH % 25.5 % (27.0-41.0); MEAN CELL VOLUME 92.4 fl (80.0-94.0); MEAN CORPUSCULAR HGB 26.7 pg (27.0-31.0); MEAN CORPUSCULAR HGB CONC 28.9 g/dl (33.0-37.0); MEAN PLATELET VOLUME 10.2 fl (9.6-12.3); MONO # 0.4 10*3/uL (0.1-1.0); MONO % 7.1 % (3.0-9.0); NEUT # 3.6 10*3/uL (2.3-7.9); NEUT % 61.5 % (47.0-73.0); PLATELET COUNT AUTOMATED 199 10*3/uL (130-400); RED BLOOD COUNT 3.03 10*6/uL (4.50-5.90); RED CELL DISTRI WIDTH 16.8 % (0-14.5); WHITE BLOOD COUNT 5.9 10*3/uL (4.8-10.8)
[2024-01-10 06:12] LABS: POTASSIUM 5.5 mmol/L (3.4-5.1)
[2024-01-10] MEDS ORDERED: SODIUM POLYSTYRENE SULFONATE 15 GM/60 ML BOT PO ONE (07:45)
[2024-01-10 08:00] VITALS: BP 134/36
[2024-01-10 12:00] VITALS: BP 136/49
[2024-01-10 16:00] VITALS: BP 153/55
[2024-01-10 21:00] VITALS: BP 180/60
[2024-01-11] VITALS: BP 135/35
[2024-01-11 05:00] VITALS: BP 201/74
[2024-01-11 06:00] VITALS: BP 137/33
[2024-01-11 06:03] LABS: BASO % 0.7 % (0.0-1.0); EOS # 0.2 10*3/uL (0.0-0.4); EOS % 4.2 % (1.0-4.0); HEMATOCRIT 25.3 % (42.0-52.0); LYMPH # 1.5 10*3/uL (1.3-4.4); LYMPH % 25.6 % (27.0-41.0); MEAN CELL VOLUME 92.3 fl (80.0-94.0); MEAN CORPUSCULAR HGB 27.4 pg (27.0-31.0); MEAN CORPUSCULAR HGB CONC 29.6 g/dl (33.0-37.0); MEAN PLATELET VOLUME 10.9 fl (9.6-12.3); MONO # 0.5 10*3/uL (0.1-1.0); MONO % 8.9 % (3.0-9.0); NEUT # 3.5 10*3/uL (2.3-7.9); NEUT % 60.4 % (47.0-73.0); PLATELET COUNT AUTOMATED 191 10*3/uL (130-400); RED BLOOD COUNT 2.74 10*6/uL (4.50-5.90); RED CELL DISTRI WIDTH 16.7 % (0-14.5); WHITE BLOOD COUNT 5.8 10*3/uL (4.8-10.8)
[2024-01-11 06:14] LABS: POTASSIUM 5.3 mmol/L (3.4-5.1)
[2024-01-11] MEDS ORDERED: INFUSION IV SCH (08:00)
[2024-01-11] MEDS ORDERED: FUROSEMIDE IV SCH (08:00)
[2024-01-11] MEDS ORDERED: SODIUM POLYSTYRENE SULFONATE 15 GM/60 ML BOT PO ONE (08:25)
[2024-01-11 12:00] VITALS: BP 146/34
[2024-01-11 16:00] VITALS: BP 131/44
[2024-01-11 20:00] VITALS: BP 169/57
[2024-01-12] VITALS: BP 132/55
[2024-01-12 06:08] LABS: ALKALINE PHOSPHATASE 63 U/L (46-116); BUN 75 mg/dl (9-23); CHLORIDE 110 mmol/L (98-107); POTASSIUM 5.3 mmol/L (3.4-5.1)
[2024-01-12 06:12] LABS: SGPT/ALT < 7 U/L (5-49)
[2024-01-12 06:16] LABS: BASO % 0.7 % (0.0-1.0); EOS # 0.2 10*3/uL (0.0-0.4); EOS % 3.6 % (1.0-4.0); HEMATOCRIT 25.6 % (42.0-52.0); LYMPH # 1.2 10*3/uL (1.3-4.4); LYMPH % 22.7 % (27.0-41.0); MEAN CELL VOLUME 92.4 fl (80.0-94.0); MEAN CORPUSCULAR HGB 27.1 pg (27.0-31.0); MEAN CORPUSCULAR HGB CONC 29.3 g/dl (33.0-37.0); MEAN PLATELET VOLUME 10.3 fl (9.6-12.3); MONO # 0.6 10*3/uL (0.1-1.0); MONO % 10.9 % (3.0-9.0); NEUT # 3.3 10*3/uL (2.3-7.9); NEUT % 61.7 % (47.0-73.0); PLATELET COUNT AUTOMATED 202 10*3/uL (130-400); RED BLOOD COUNT 2.77 10*6/uL (4.50-5.90); RED CELL DISTRI WIDTH 16.3 % (0-14.5); WHITE BLOOD COUNT 5.3 10*3/uL (4.8-10.8)
[2024-01-12 08:00] VITALS: BP 154/49
[2024-01-12 12:00] VITALS: BP 160/53
[2024-01-12 16:08] VITALS: BP 140/43
[2024-01-12 20:00] VITALS: BP 158/52
[2024-01-12] MEDS ORDERED: cloNIDine Hydrochloride 0.2 MG TAB PO SCH (22:00)
[2024-01-13] VITALS: BP 144/49
[2024-01-13 04:07] LABS: BASO # 0.1 10*3/uL (0.0-0.1); BASO % 0.8 % (0.0-1.0); EOS # 0.2 10*3/uL (0.0-0.4); EOS % 3.5 % (1.0-4.0); LYMPH % 17.3 % (27.0-41.0); MEAN CELL VOLUME 92.1 fl (80.0-94.0); MEAN CORPUSCULAR HGB 26.6 pg (27.0-31.0); MEAN CORPUSCULAR HGB CONC 28.9 g/dl (33.0-37.0); MEAN PLATELET VOLUME 9.8 fl (9.6-12.3); MONO # 0.6 10*3/uL (0.1-1.0); MONO % 9.5 % (3.0-9.0); NEUT # 4.1 10*3/uL (2.3-7.9); NEUT % 68.7 % (47.0-73.0); PLATELET COUNT AUTOMATED 212 10*3/uL (130-400); RED BLOOD COUNT 3.04 10*6/uL (4.50-5.90); RED CELL DISTRI WIDTH 16.5 % (0-14.5)
[2024-01-13 04:28] LABS: POTASSIUM 5.2 mmol/L (3.4-5.1)
[2024-01-13 08:00] VITALS: BP 153/63
[2024-01-13 12:00] VITALS: BP 168/54
[2024-01-13] MEDS ORDERED: DEXTROSE 10 % IN WATER 250 ML IV PRN (12:45)
[2024-01-13 15:45] VITALS: BP 147/54
[2024-01-13] MEDS ORDERED: INSULIN LISPRO 1 UNIT/0.01 ML SQ SCH (16:30)
[2024-01-13 20:00] VITALS: BP 168/54
[2024-01-13] MEDS ORDERED: ATORVASTATIN CALCIUM 80 MG TAB PO SCH (22:00)
[2024-01-14] VITALS: BP 148/65
[2024-01-14 04:23] LABS: BASO # 0.1 10*3/uL (0.0-0.1); BASO % 0.9 % (0.0-1.0); EOS # 0.2 10*3/uL (0.0-0.4); EOS % 3.4 % (1.0-4.0); HEMATOCRIT 26.8 % (42.0-52.0); LYMPH # 1.1 10*3/uL (1.3-4.4); LYMPH % 18.7 % (27.0-41.0); MEAN CELL VOLUME 91.8 fl (80.0-94.0); MEAN CORPUSCULAR HGB 27.1 pg (27.0-31.0); MEAN CORPUSCULAR HGB CONC 29.5 g/dl (33.0-37.0); MEAN PLATELET VOLUME 10.6 fl (9.6-12.3); MONO # 0.7 10*3/uL (0.1-1.0); MONO % 11.7 % (3.0-9.0); NEUT # 3.8 10*3/uL (2.3-7.9); NEUT % 65.1 % (47.0-73.0); PLATELET COUNT AUTOMATED 228 10*3/uL (130-400); RED BLOOD COUNT 2.92 10*6/uL (4.50-5.90); RED CELL DISTRI WIDTH 16.4 % (0-14.5); WHITE BLOOD COUNT 5.9 10*3/uL (4.8-10.8)
[2024-01-14 04:45] LABS: POTASSIUM 4.8 mmol/L (3.4-5.1)
[2024-01-14 08:00] VITALS: BP 153/53
[2024-01-14] MEDS ORDERED: NA FERRIC GLUC CMPL/SUCROSE 62.5 MG/5 ML VIAL IV SCH (10:00)
[2024-01-14] MEDS ORDERED: ASPIRIN, CHEWABLE 81 MG TAB PO SCH (10:00)
[2024-01-14 12:00] VITALS: BP 142/44
[2024-01-14 16:00] VITALS: BP 164/58
[2024-01-14 20:00] VITALS: BP 151/45
[2024-01-15] VITALS: BP 140/40
[2024-01-15 05:15] LABS: POTASSIUM 4.7 mmol/L (3.4-5.1)
[2024-01-15 06:19] LABS: BASO # 0.1 10*3/uL (0.0-0.1); EOS # 0.2 10*3/uL (0.0-0.4); HEMATOCRIT 25.7 % (42.0-52.0); LYMPH # 1.2 10*3/uL (1.3-4.4); LYMPH % 19.4 % (27.0-41.0); MEAN CELL VOLUME 91.8 fl (80.0-94.0); MEAN CORPUSCULAR HGB 26.4 pg (27.0-31.0); MEAN CORPUSCULAR HGB CONC 28.8 g/dl (33.0-37.0); MEAN PLATELET VOLUME 10.4 fl (9.6-12.3); MONO # 0.7 10*3/uL (0.1-1.0); MONO % 10.7 % (3.0-9.0); NEUT % 65.6 % (47.0-73.0); PLATELET COUNT AUTOMATED 226 10*3/uL (130-400); RED CELL DISTRI WIDTH 16.1 % (0-14.5); WHITE BLOOD COUNT 6.1 10*3/uL (4.8-10.8)
[2024-01-15 08:00] VITALS: BP 140/48
[2024-01-15 12:00] VITALS: BP 143/52
[2024-01-15 16:00] VITALS: BP 145/50
[2024-01-15 20:00] VITALS: BP 163/55
[2024-01-16] VITALS: BP 168/57
[2024-01-16 06:25] LABS: BASO # 0.1 10*3/uL (0.0-0.1); BASO % 1.1 % (0.0-1.0); EOS # 0.2 10*3/uL (0.0-0.4); HEMATOCRIT 24.6 % (42.0-52.0); LYMPH # 1.3 10*3/uL (1.3-4.4); LYMPH % 23.6 % (27.0-41.0); MEAN CELL VOLUME 91.4 fl (80.0-94.0); MEAN CORPUSCULAR HGB 27.5 pg (27.0-31.0); MEAN CORPUSCULAR HGB CONC 30.1 g/dl (33.0-37.0); MEAN PLATELET VOLUME 9.7 fl (9.6-12.3); MONO # 0.5 10*3/uL (0.1-1.0); MONO % 9.9 % (3.0-9.0); NEUT # 3.3 10*3/uL (2.3-7.9); PLATELET COUNT AUTOMATED 200 10*3/uL (130-400); RED BLOOD COUNT 2.69 10*6/uL (4.50-5.90); RED CELL DISTRI WIDTH 16.1 % (0-14.5); WHITE BLOOD COUNT 5.4 10*3/uL (4.8-10.8)
[2024-01-16 06:55] LABS: POTASSIUM 4.4 mmol/L (3.4-5.1)
[2024-01-16 08:00] VITALS: BP 141/50
[2024-01-16 12:00] VITALS: BP 160/50
[2024-01-16 16:00] VITALS: BP 144/54
[2024-01-16] MEDS ORDERED: FUROSEMIDE 40 MG TAB PO SCH (18:00)
[2024-01-16 20:00] VITALS: BP 142/45
[2024-01-17] VITALS: BP 165/61
[2024-01-17 05:14] LABS: POTASSIUM 4.4 mmol/L (3.4-5.1)
[2024-01-17 06:00] LABS: BASO # 0.1 10*3/uL (0.0-0.1); BASO % 1.4 % (0.0-1.0); EOS # 0.2 10*3/uL (0.0-0.4); EOS % 2.8 % (1.0-4.0); HEMATOCRIT 25.3 % (42.0-52.0); LYMPH # 1.3 10*3/uL (1.3-4.4); LYMPH % 21.9 % (27.0-41.0); MEAN CELL VOLUME 91.7 fl (80.0-94.0); MEAN CORPUSCULAR HGB 27.9 pg (27.0-31.0); MEAN CORPUSCULAR HGB CONC 30.4 g/dl (33.0-37.0); MEAN PLATELET VOLUME 10.7 fl (9.6-12.3); MONO # 0.7 10*3/uL (0.1-1.0); MONO % 11.7 % (3.0-9.0); NEUT # 3.6 10*3/uL (2.3-7.9); PLATELET COUNT AUTOMATED 212 10*3/uL (130-400); RED BLOOD COUNT 2.76 10*6/uL (4.50-5.90); RED CELL DISTRI WIDTH 16.1 % (0-14.5); WHITE BLOOD COUNT 5.8 10*3/uL (4.8-10.8)
[2024-01-17 09:34] VITALS: BP 139/52
[2024-01-17 12:50] VITALS: BP 148/45
[2024-01-17 16:00] VITALS: BP 143/50
[2024-01-17 20:00] VITALS: BP 173/59
[2024-01-18] VITALS: BP 161/49
[2024-01-18 08:00] VITALS: BP 143/45
[2024-01-18 10:52] LABS: BASO # 0.1 10*3/uL (0.0-0.1); BASO % 1.3 % (0.0-1.0); EOS # 0.2 10*3/uL (0.0-0.4); EOS % 2.9 % (1.0-4.0); HEMATOCRIT 28.6 % (42.0-52.0); LYMPH # 1.1 10*3/uL (1.3-4.4); LYMPH % 19.6 % (27.0-41.0); MEAN CELL VOLUME 92.3 fl (80.0-94.0); MEAN CORPUSCULAR HGB 27.7 pg (27.0-31.0); MEAN CORPUSCULAR HGB CONC 30.1 g/dl (33.0-37.0); MEAN PLATELET VOLUME 9.7 fl (9.6-12.3); MONO # 0.6 10*3/uL (0.1-1.0); MONO % 10.3 % (3.0-9.0); NEUT # 3.7 10*3/uL (2.3-7.9); NEUT % 65.7 % (47.0-73.0); PLATELET COUNT AUTOMATED 218 10*3/uL (130-400); RED CELL DISTRI WIDTH 16.2 % (0-14.5); WHITE BLOOD COUNT 5.6 10*3/uL (4.8-10.8)
[2024-01-18] MEDS ORDERED: CLONIDINE HCL0.2 MG PO (10:54)
[2024-01-18] MEDS ORDERED: PROAIR DIGIHAL90 MCG INH (10:54)
[2024-01-18] MEDS ORDERED: Imdur SA60 MG PO (10:54)
[2024-01-18] MEDS ORDERED: CARVEDILOL25 MG PO (10:54)
[2024-01-18] MEDS ORDERED: ATORVASTATIN CA80 M1 PO (10:54)
[2024-01-18] MEDS ORDERED: SPIRIVA RESPIMAT4 GM INH (10:54)
[2024-01-18] MEDS ORDERED: HYDRALAZINE HC100 MG PO (10:54)
[2024-01-18 11:12] LABS: POTASSIUM 3.9 mmol/L (3.4-5.1)
[2024-01-18 12:00] VITALS: BP 162/58
[2024-01-18] MEDS ORDERED: FUROSEMIDE40 MG PO (13:03)
[2024-01-18] MEDS ORDERED: Metolazone5 MG PO (13:19)
== END 2024-01-18 16:26 | disposition home or self-care (01) | DRG 177 ==
LOC: ED 13:00 → ICCU 17:05 → EDHOLD 17:05 → ICCU 20:31 → 5E 01-12 11:25
PROVIDERS: Family Medicine; Internal Medicine; Internal Medicine Pulmonary Disease; Registered Nurse; Student in an Organized Health Care Education/Training Program; ADMIT Internal Medicine; ATTEND Internal Medicine
PROC: 0W9G3ZZ Drainage of Peritoneal Cavity, Percutaneous Approach (ICD-10-PCS; principal; 2024-01-12)
DX: J15.69 Pneumonia due to other Gram-negative bacteria (principal); E43 Unspecified severe protein-calorie malnutrition; N17.0 Acute kidney failure with tubular necrosis; I50.33 Acute on chronic diastolic (congestive) heart failure; J96.01 Acute respiratory failure with hypoxia; I16.1 Hypertensive emergency; J44.0 Chronic obstructive pulmonary disease with (acute) lower respiratory infection; N18.4 Chronic kidney disease, stage 4 (severe); J44.1 Chronic obstructive pulmonary disease with (acute) exacerbation; J91.8 Pleural effusion in other conditions classified elsewhere; I13.0 Hypertensive heart and chronic kidney disease with heart failure and stage 1 through stage 4 chronic kidney disease, or unspecified chronic kidney disease; F17.210 Nicotine dependence, cigarettes, uncomplicated; Z66 Do not resuscitate; I25.10 Atherosclerotic heart disease of native coronary artery without angina pectoris; E83.51 Hypocalcemia; R91.1 Solitary pulmonary nodule; R54 Age-related physical debility; E11.22 Type 2 diabetes mellitus with diabetic chronic kidney disease; E66.9 Obesity, unspecified; G47.33 Obstructive sleep apnea (adult) (pediatric); D64.9 Anemia, unspecified; E87.8 Other disorders of electrolyte and fluid balance, not elsewhere classified; E11.65 Type 2 diabetes mellitus with hyperglycemia; I44.1 Atrioventricular block, second degree; Z68.37 Body mass index [BMI] 37.0-37.9, adult; Z71.6 Tobacco abuse counseling; I25.2 Old myocardial infarction; Z95.5 Presence of coronary angioplasty implant and graft; Z51.5 Encounter for palliative care; Z82.5 Family history of asthma and other chronic lower respiratory diseases; Z79.82 Long term (current) use of aspirin; Z79.84 Long term (current) use of oral hypoglycemic drugs; Z79.899 Other long term (current) drug therapy; Z68.39 Body mass index [BMI] 39.0-39.9, adult